=== PATIENT | female | born 1985 | race Caucasian/White ===

== ENCOUNTER 2022-09-29 06:39 | Inpatient (IN) ==
[2022-09-29] MEDS ORDERED: fentaNYL citrate 100 MCG/2 ML VIAL ONE (07:13)
--- NOTE | 2022-09-29 07:44 | Anesthesiology Consultation ---
Date of Service September 29, 2022 Assessment & Plan (1) Encounter for pre-operative examination: Chart Review Chart Review: Patient NOT seen in Pre Admission Testing and Patient seen in Pre Admission Testing urgent need d/t cervical dilation and twin gestation, to OR for MAC and standby for potential conversion to surgical delivery Consults Requested none History Allergies Allergy/AdvReac Type Severity Reaction Status Date / Time animal dander Allergy sneeze, Verified 05/22/22 06:58 itchy eyes hazelnut Allergy Hives Verified 05/22/22 06:58 ragweed pollen Allergy sneeze, Verified 05/22/22 06:58 itchy eyes Medications Home Medications Medication Instructions Recorded Confirmed Last Taken cetirizine 10 mg tablet (Zyrtec) 10 mg PO DAILY 05/21/22 05/21/22 Unknown ondansetron 4 mg disintegrating 0 mg PO Q6H PRN Nausea 05/21/22 05/21/22 Unknown tablet vit no.95-ferrous 1 tab PO DAILY 05/21/22 05/21/22 Unknown fumarate 28 mg-folic acid 800 mcg tablet () sennosides 8.6 mg-docusate sodium 1 - 2 tab-cap PO BID PRN 05/25/22 Unknown 50 mg tablet (Senokot-S) constipation #60 tabs Past Medical History Medical History Abdominal pain, right lower quadrant Social History Smoking Status: Never smoker Physical Exam Vital Signs Last Vital Signs Pulse 75 09/29/22 07:39 BP 94/55 L 09/29/22 06:53 Pulse Ox 100 09/29/22 07:39
[2022-09-29] MEDS ORDERED: PROPOFOL IV EMULSION 10 MG/ML 20 ML VIAL IV ONE (08:11)
[2022-09-29] MEDS ORDERED: METHYLERGONOVINE MALEATE 0.2 MG/ML AMP ONE (08:11)
--- NOTE | 2022-09-29 08:25 | Anesthesiology Progress Note ---
Date of Service September 29, 2022 Anesthesia Post Procedure Vital Signs Vital Signs: Pulse BP Pulse Ox 09/29/22 08:21 95 09/29/22 08:21 78 09/29/22 08:22 78 122/56 L 09/29/22 08:21 87 93 09/29/22 07:49 92 H 97 09/29/22 07:45 79 93 09/29/22 07:44 96 H 100 09/29/22 07:39 75 100 09/29/22 07:34 81 96 09/29/22 07:33 90 93 09/29/22 07:29 102 H 100 09/29/22 07:26 90 93 09/29/22 07:24 88 98 09/29/22 07:21 77 94 09/29/22 07:19 80 95 09/29/22 07:15 85 93 09/29/22 06:53 87 94/55 L Transfer of Care Handoff Completed per policy Notes Mental Status: alert / awake / arousable and participated in evaluation Patient Amnestic to Procedure: No Nausea / Vomiting: adequately controlled Pain: adequately controlled Airway Patency, RR, SpO2: stable & adequate BP & HR: stable & adequate Hydration State: stable & adequate Anesthetic Complications: no major complications apparent and Pt Satisfied with anesthetic care
[2022-09-29] MEDS ORDERED: OXYTOCIN 30 UNITS/500 ML BAG IV PRN (08:27)
[2022-09-29] MEDS ORDERED: METHYLERGONOVINE MALEATE 0.2 MG/ML AMP IM PRN (08:27)
[2022-09-29] MEDS ORDERED: LIDOCAINE 1% LOCAL 20 ML VIAL INFIL PRN (08:27)
[2022-09-29] MEDS ORDERED: LACTATED RINGER'S 1,000 ML IV PRN (08:27)
[2022-09-29] MEDS ORDERED: miSOPROStoL 200 MCG TAB PR ONE (08:38)
[2022-09-29] MEDS ORDERED: ONDANSETRON 4 MG OD TAB PO PRN (08:38)
--- NOTE | 2022-09-29 08:40 | History & Physical Report ---
Date of Service September 29, 2022 Assessment & Plan (1) premature rupture of membranes: Plan: Delivery vaginally in OR Present on Admission?: Yes (2) Twin gestation in third trimester: (3) 32 week prematurity: Admission and Anticipated Discharge Date Admission Date: September 29, 2022 History of Present Illness Chief Complaint: ruptured membranes with twins 32 weeks Primary Care Provider: NO PCP 37 F P2012 at 32 weeks with SROM clear fluid with twin gestation at 32 weeks Allergies Allergy/AdvReac Type Severity Reaction Status Date / Time animal dander Allergy sneeze, Verified 09/29/22 08:34 itchy eyes hazelnut Allergy Hives Verified 09/29/22 08:34 ragweed pollen Allergy sneeze, Verified 09/29/22 08:34 itchy eyes Home Medications Medication Instructions Recorded Confirmed Type cetirizine 10 mg tablet (Zyrtec) 10 mg PO DAILY 05/21/22 05/21/22 History ondansetron 4 mg disintegrating 0 mg PO Q6H PRN Nausea 05/21/22 05/21/22 History tablet vit no.95-ferrous 1 tab PO DAILY 05/21/22 05/21/22 History fumarate 28 mg-folic acid 800 mcg tablet () sennosides 8.6 mg-docusate sodium 1 - 2 tab-cap PO BID PRN 05/25/22 Rx 50 mg tablet (Senokot-S) constipation #60 tabs Patient History Medical History Abdominal pain, right lower quadrant Social History Smoking Status: Never smoker Feels Safe at Home: Yes OB History x2 [employer] History neg Review of Systems All systems reviewed & are unremarkable except as noted in HPI & below Physical Exam Constitutional: WD/WN, vitals as above Eyes: PERRL, conjunctivae normal, anicteric sclerae Respiratory: normal respiratory effort, lungs clear to auscultation Gastrointestinal (Abdomen): Inspection/Auscultation: abdomen normal to inspection Musculoskeletal: Extremities: extremities normal to inspection Skin: no rashes, warm and dry Neurologic: patellar DTR's 2+ bilat, sensation intact Psychiatric: A+Ox3, euthymic affect Genitourinary: Manual OB Exam: + cervical dilation 10 cm, + cervical effacement 100%, + station + 2 and + amniotic fluid clear OB Exam Monitor Tracing: + external FHT monitor used, + external uterine monitor used, + category I and + normal FHT variability Twin A vertex Cat 1 Twin B breech Cat 1 GBS not known Results & Data ([place]) Vital Signs (Past 12 Hours) Vital Signs Pulse BP Pulse Ox 09/29/22 08:31 86 97 09/29/22 08:26 71 97 09/29/22 08:21 95 09/29/22 08:21 78 09/29/22 08:22 78 122/56 L 09/29/22 08:21 87 93 09/29/22 07:49 92 H 97 09/29/22 07:45 79 93 09/29/22 07:44 96 H 100 09/29/22 07:39 75 100 09/29/22 07:34 81 96 09/29/22 07:33 90 93 09/29/22 07:29 102 H 100 09/29/22 07:26 90 93 09/29/22 07:24 88 98 09/29/22 07:21 77 94 09/29/22 07:19 80 95 09/29/22 07:15 85 93 09/29/22 06:53 87 94/55 L Code Status & VTE Plan VTE Prophylaxis Plan VTE Prophylaxis will be ordered: No Monitoring External Monitor Ca t 1 A/B
[2022-09-29] MEDS ORDERED: PRENATAL VITAMIN 1 TAB PO SCH (09:00)
[2022-09-29] MEDS ORDERED: SODIUM CHLORIDE 0.9% 250 ML IV PRN (10:18)
[2022-09-29] MEDS: IBUPROFEN 600 MG TAB PO PRN ×3 (11:56→23:10)
[2022-09-29] MEDS: CETIRIZINE HCL 10 MG TABLET PO SCH (11:56)
--- NOTE | 2022-09-29 12:06 | Delivery Summary ---
DELIVERY NOTE The patient is a 37-year-old female, para 2-0-0-2, who presents at 32 weeks and 5 days with premature rupture of membranes of twin gestation. The patient was identified. She had twins that were vertex breech by ultrasound done by Dr. Ramsay. She was given informed consent. She was fully dilated upon presentation and delivery options were given to her and the patient consented to delivery in the OR to attempt a vaginal delivery since the first twin was presenting as a vertex and the patient had a tremendous urge to push. The fluid was clear. The patient pushed several times, had an uneventful delivery of twin A, which was vertex female. There was a delayed cord clamping and the baby was suctioned and the cord was clamped and cut. Chasity clamps were placed and the baby had Apgars of 8 and 9. weight was pending. Following this, the patient had several contractions, and she pushed for several times. Amniotomy was performed with Amniohook clear fluid noted and the patient was found to be a double footling breech. The feet were grabbed and the baby was delivered without incident. Live female. Delayed cord clamping for 30 seconds. The Apgars were 6 and 8, weight was pending. The cord was clamped with a Ethel clamp. Following this, the IV was started with Pitocin. Cord blood was obtained from baby A and baby B. Both cords were sheared off after attempts to deliver the placenta. The patient was then sedated and manual removal of placenta was accomplished without difficulty intact and the placenta was submitted to pathology. At the end of this procedure, the patient received 1000 mcg of Cytotec rectally along with IV Pitocin and 0.2 IM Methergine. No active bleeding was noted. The final sponge and instrument count were found to be correct. The patient was then stable. Babies to the NICU, level 2 nursery, on CPAP for observation and mom was taken to the recovery room in stable condition. Estimated blood loss was 100 mL. Job ID: [id number] [facility]ENTERBrian
[2022-09-30] MEDS ORDERED: SERTRALINE HCL 100 MG TABLET PO SCH (09:00)
[2022-09-30] MEDS: CETIRIZINE HCL 10 MG TABLET PO SCH (09:10)
--- NOTE | 2022-09-30 10:00 | Obstetrical Progress Note ---
Date of Service September 30, 2022 Assessment & Plan (1) 32 week prematurity: S/P Twin delivery @ 32 weeks [place] [facility] [place] well pt wishes to be discharged [place] Results & Data ([facility]) Vital Signs (Past 12 Hours) Vital Signs Temp Pulse Pulse Resp BP BP Pulse Ox 09/30/22 09:20 37.0 C 90 18 109/64 97 09/29/22 23:10 36.8 C 85 18 99/60 L 96 09/30/22 04:42 36.6 C 59 L 16 103/61 98 O2 Del Method 09/30/22 09:20 Room Air 09/29/22 23:10 09/30/22 04:42
[2022-09-30 10:09] LABS: Basophils # (auto) 0.04 K/uL (0-0.2); Basophils % (auto) 0.3 %; Eosinophils # (auto) 0.08 K/uL (0-0.50); Eosinophils % (auto) 0.6 %; Hematocrit (blood only) 31.2 % (37.0-47.0); Hemoglobin 10.3 g/dl (12.0-16.0); Immature Granulocytes # (auto) 0.16 K/uL (0.01-0.20); Immature Granulocytes % (auto) 1.2 %; Lymphocytes # (auto) 3.17 K/uL (1.2-3.4); Lymphocytes % (auto) 24.6 %; Mean Corpuscular Hemoglobin 30.9 pg (25.0-34.0); Mean Corpuscular Volume 93.7 fL (80.0-100.0); Mean Platelet Volume 8.7 fL (9.4-12.4); Monocytes # (auto) 0.73 K/uL (0.11-0.59); Monocytes % (auto) 5.7 %; Neutrophils # (auto) 8.73 K/uL (1.40-6.50); Neutrophils % (auto) 67.6 %; Platelet Count 280 K/uL (130-400); RDW Coefficient of Variation 13.7 % (11.5-14.5); RDW Standard Deviation 46.1 fL (36.4-46.3); Red Blood Count 3.33 M/uL (4.20-5.40); White Blood Count 12.91 K/ul (4.8-10.8)
[2022-09-30] MEDS: IBUPROFEN 600 MG TAB PO PRN (11:50)
== END 2022-09-30 12:25 | disposition home or self-care (01) | DRG 805 ==
LOC: OPB 06:39 → 4S1 06:42 → 4E1 10:48

== ENCOUNTER 2022-10-04 17:41 | Inpatient (IN) ==
[2022-10-04] MEDS ORDERED: SODIUM CHLORIDE 0.9% 1000ML 1,000 ML IV SCH (18:30)
--- NOTE | 2022-10-04 18:50 | Emergency Department Note ---
History of Present Illness General Chief complaint: Fever Stated complaint: FEVER, BLOOD CLOT Time Seen by Provider: 10/04/22 17:57 History of Present Illness Provider complaint: Fever Onset (ago): day(s) 2 37-year-old female status post vaginal delivery of twins on September 29 by Brittaney DISPENSING OPTICIAN at this facility presents emergency department for fever. Patient reports she has been having fever for the last 2 days. Tmax of 101.3. She also reports she has been passing clots vaginally. She reports chills. She reports abdominal pain but she reports that after passing some clots her pain improved. No cough. No headache. No chest pain or difficulty breathing. No nausea or vomiting. No breast tenderness or erythema. Home Medications Medication Instructions Recorded Confirmed Type cetirizine 10 mg tablet (Zyrtec) 10 mg PO DAILY 05/21/22 10/04/22 History vit no.95-ferrous 1 tab PO DAILY 05/21/22 10/04/22 History fumarate 28 mg-folic acid 800 mcg tablet () sertraline 100 mg tablet (Zoloft) 100 mg PO DAILY 09/29/22 10/04/22 History ferrous sulfate 325 mg (65 mg 325 mg PO Q OTHER DAY 10/04/22 10/04/22 History iron) tablet Allergies Allergy/AdvReac Type Severity Reaction Status Date / Time animal dander Allergy Intermediate sneeze, Verified 10/04/22 18:29 itchy eyes hazelnut Allergy Intermediate Hives Verified 10/04/22 18:29 ragweed pollen Allergy Intermediate sneeze, Verified 10/04/22 18:29 itchy eyes Past Med/Surg History Medical History Abdominal pain, right lower quadrant Anxiety and depression Surgical History Hx of tonsillectomy [place] teeth extracted Social History Smoking Status: Never smoker Second Hand Exposure: No; Hx Alcohol Use: No Hx Substance Use: No 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 Beliefs That Will Affect Care: None marital status: Current Living Situation: Spouse Current Living Situation Comment: Robinson- , 5 Josué, 4 Hector (daughters) Feels Safe at Home: Yes Assistive Devices: Glasses Physical Exam Vital Signs Vital Signs - 24 hr 10/04/22 17:50 10/04/22 18:11 10/04/22 19:04 Temperature 37.6 C H Temperature Source Oral Pulse Rate 119 H 103 H Pulse Rate [Left Finger] Pulse Rhythm [Left Finger] Pulse Strength [Left Finger] Respiratory Rate 20 Respiratory Effort / Characteristics Respiratory Depth Normal Blood Pressure 109/64 Blood Pressure [Left Arm] Blood Pressure Mean 79 Blood Pressure Mean [Left Arm] Pulse Oximetry 97 100 Oxygen Delivery Method Room Air Room Air Sepsis Recent Fever Within 48 Hours Yes Sepsis New/Unexplained Change in Mental Status No Sepsis Action Taken by Nursing No Action Required 10/04/22 19:04 10/04/22 20:03 10/04/22 20:48 Temperature Temperature Source Pulse Rate Pulse Rate [Left Finger] 100 H 101 H 88 Pulse Rhythm [Left Finger] Regular Regular Regular Pulse Strength [Left Finger] Normal Normal Normal Respiratory Rate 20 16 16 Respiratory Effort / Characteristics Non-Labored Spontaneous Non-Labored Spontaneous Non-Labored Spontaneous Respiratory Depth Normal Normal Normal Blood Pressure Blood Pressure [Left Arm] 126/68 129/70 129/70 Blood Pressure Mean Blood Pressure Mean [Left Arm] 87 89 89 Pulse Oximetry 99 99 98 Oxygen Delivery Method Room Air Room Air Room Air Sepsis Recent Fever Within 48 Hours Sepsis New/Unexplained Change in Mental Status Sepsis Action Taken by Nursing 10/04/22 21:16 10/04/22 22:23 10/04/22 22:00 Temperature Temperature Source Pulse Rate 78 Pulse Rate [Left Finger] 87 77 Pulse Rhythm [Left Finger] Regular Regular Pulse Strength [Left Finger] Normal Normal Respiratory Rate 16 20 Respiratory Effort / Characteristics Non-Labored Spontaneous Non-Labored Spontaneous Respiratory Depth Normal Normal Blood Pressure Blood Pressure [Left Arm] 99/56 L 99/80 L Blood Pressure Mean Blood Pressure Mean [Left Arm] 70 86 Pulse Oximetry 98 97 Oxygen Delivery Method Room Air Room Air Sepsis Recent Fever Within 48 Hours Sepsis New/Unexplained Change in Mental Status Sepsis Action Taken by Nursing 10/04/22 22:34 Temperature Temperature Source Pulse Rate Pulse Rate [Left Finger] 73 Pulse Rhythm [Left Finger] Regular Pulse Strength [Left Finger] Respiratory Rate Respiratory Effort / Characteristics Respiratory Depth Blood Pressure Blood Pressure [Left Arm] Blood Pressure Mean Blood Pressure Mean [Left Arm] Pulse Oximetry Oxygen Delivery Method Sepsis Recent Fever Within 48 Hours Sepsis New/Unexplained Change in Mental Status Sepsis Action Taken by Nursing Physical Exam GENERAL: She is oriented to person, place, and time. She appears well-developed and well-nourished. She does not appear distressed. HENT: Exam performed. -Head: Normocephalic and atraumatic. -Right Ear: External ear normal. -Left Ear: External ear normal. -Mouth/Throat: The oropharynx is clear and moist. No trismus in the jaw. No dental abscesses or uvula swelling. No oropharyngeal exudate or tonsillar abscesses. EYES: Conjunctivae and EOM are normal. Pupils are equal, round, and reactive to light. Right eye exhibits no discharge. Left eye exhibits no discharge. No scleral icterus. NECK: Normal range of motion. Neck supple. No JVD present. No spinous process tenderness present.No rigidity. No tracheal deviation and normal range of motion present. CV: Tachycardic rate, regular rhythm, normal heart sounds and intact distal pulses. There is no peripheral edema. Palpable radial pulses bue. PULM/CHEST: Effort normal and breath sounds normal. No respiratory distress. No stridor. She has no wheezes. She has no rales. -Chest Wall: She exhibits no tenderness. Breast: Conducted with female nursing rf test technician Edilberto at bedside. No erythema of the breast tissue. ABD: The abdomen is soft. She has no distension. There is no tenderness. There is no rebound, no guarding, MUSC/SKEL: Normal range of motion. There is no peripheral edema, tenderness or deformity. LYMPH: No cervical adenopathy. NEURO: She is alert and oriented to person, place, and time. She has normal strength. No cranial nerve deficit or sensory deficit. Coordination and gait normal. GCS eye subscore is 4. GCS verbal subscore is 5. GCS motor subscore is 6. Cerebellar tests wnl. SKIN: Skin is warm and dry. She is not diaphoretic. PSYCH: She has a normal mood and affect. Behavior is normal. Judgment and thought content normal. Course Course 1756: The patient was evaluated in room B2. A complete history and physical exam was performed Cardiac monitoring: An order was placed for continuous cardiac monitoring. The monitor shows a rate of 105 with sinus tachycardia rhythm interpreted by me 2010: Vital signs improved with IV fluids. Labs show leukocytosis of 20.59. Lactic acid within normal limits. Urinalysis is contaminated sample but negative for bacteria. Ultrasound shows retained products of conception. Patient be treated for endometritis given her fever abdominal pain and leukocytosis. Gentamicin and clindamycin ordered for the patient. Discussed case with patient's DISPENSING OPTICIAN Dr. Ramsay who states he will be down to evaluate the patient. Administered Medications Lactated Ringer's (Lr) 1,000 mls @ 125 mls/hr IV .Q8H JOSE Stop: 11/03/22 22:59 Last Admin: 10/05/22 00:00 Dose: 125 mls/hr Documented By: TW Discontinued Medications Sodium Chloride (Nss 1000ml) 1,000 mls @ 999 mls/hr IV .Q1H1M JOSE Stop: 10/04/22 19:30 Last Infusion: 10/04/22 19:51 Dose: 0 mls/hr Documented By: Admin: 10/04/22 18:33 Dose: 999 mls/hr Documented By: LARISA Clindamycin Phosphate (Cleocin/D5w) 900 mg in 50 mls @ 100 mls/hr IV NOW ONE Stop: 10/04/22 20:31 Last Infusion: 10/04/22 21:13 Dose: 0 mls/hr Documented By: Admin: 10/04/22 20:42 Dose: 100 mls/hr Documented By: RACHELLE Acetaminophen (Ofirmev) 1,000 mg in 100 mls @ 400 mls/hr IV NOW STA Stop: 10/04/22 20:27 Last Infusion: 10/04/22 20:38 Dose: 0 mls/hr Documented By: Admin: 10/04/22 20:22 Dose: 400 mls/hr Documented By: RACHELLE Gentamicin Sulfate 423 mg/ (Dextrose) 110.575 mls @ 100 mls/hr IV ONE STA; Protocol Stop: 10/05/22 00:37 Last Admin: 10/05/22 00:00 Dose: 100 mls/hr Documented By: RACHELLE Medical Decision Making Medical Records Attestation: I reviewed the patient's medical records. External medical records were reviewed. Patient delivered on September 29, 2022. According to the vaginal delivery summary the patient was sedated and there is manual removal of the placenta without difficulty and the placenta was submitted to pathology intact. Patient delivered at 32 weeks of gestation and both twins were transferred to [facility]. Laboratory Data Attestation: I reviewed the patient's lab results. 10/04/22 18:34 10/04/22 18:34 Lab Results 10/04/22 10/04/22 10/04/22 Range/Units 18:34 18:34 18:34 WBC 20.59 H (4.8-10.8) K/ul RBC 3.43 L (4.20-5.40) M/uL Hgb 10.8 L (12.0-16.0) g/dl Hct 31.5 L (37.0-47.0) % MCV 91.8 (80.0-100.0) fL MCH 31.5 (25.0-34.0) pg MCHC 34.3 (32.0-36.0) g/dL RDW Std Deviation 46.5 H (36.4-46.3) fL RDW Coeff of Stanislav 13.9 (11.5-14.5) % Plt Count 409 H (130-400) K/uL MPV 8.2 L (9.4-12.4) fL Immature Gran % (Auto) 1.2 % Neut % (Auto) 77.7 % Lymph % (Auto) 13.3 % [place] % (Auto) 5.6 % Eos % (Auto) 1.8 % Baso % (Auto) 0.4 % Neut # (Auto) 16.01 H (1.40-6.50) K/uL Lymph # (Auto) 2.73 (1.2-3.4) K/uL [place] # (Auto) 1.15 H (0.11-0.59) K/uL Eos # (Auto) 0.37 (0-0.50) K/uL Baso # (Auto) 0.08 (0-0.2) K/uL Immature Gran # (Auto) 0.25 H (0.01-0.20) K/uL PT 10.3 (9.0-12.0) Seconds INR 1.0 (0.9-1.1) APTT 27.9 (21.0-31.0) Seconds PTT Ratio 1.0 Sodium 134 L (136-145) mmol/L Potassium 3.5 (3.5-5.1) mmol/L Chloride 104 (98-107) mmol/L Carbon Dioxide 23 (21-32) mmol/L Anion Gap 7 (3-11) BUN 5 L (6-23) mg/dl Creatinine 0.54 L (0.6-1.2) mg/dl Est Cr Clr Drug Dosing 143.3 ml/min Est GFR ( Amer) 138.7 ml/min Est GFR (Non-Af Amer) 119.7 ml/min BUN/Creatinine Ratio 9.3 L (10-20) Glucose 79 (70-99(Fasting)) mg/dl Lactate (0.4-2.0) mmol/L Calcium 8.0 L (8.5-10.1) mg/dl Magnesium 1.8 (1.7-2.4) mg/dl Total Bilirubin 0.3 (0.2-1.0) mg/dl Direct Bilirubin 0.0 (0-0.2) mg/dl AST 9 L (13-39) U/L ALT 7 (7-52) U/L Alkaline Phosphatase 159 H (34-104) U/L Troponin I High Sens 5.6 (0-14) pg/ml Total Protein 6.6 (6.0-8.3) gm/dl Albumin 3.2 L (3.4-5.0) gm/dl Procalcitonin (0-0.5) ng/ml Urine Color Urine Appearance (Clear) Urine pH (4.5-7.5) Ur Specific [place] (1.000-1.030) Urine Protein (Negative) Urine Glucose (UA) (Negative) Urine Ketones (Negative) Urine Blood (Negative) Urine Nitrite (Negative) Urine Bilirubin (Negative) Urine Urobilinogen (Negative) Ur Leukocyte Esterase (Negative) Urine WBC (Auto) (0-5) /hpf Urine RBC (Auto) (0-4) /hpf U Hyaline Cast (Auto) (0-5) /lpf U Epithel Cells (Auto) (0-5) /lpf Urine Bacteria (Auto) (Negative) SARS-CoV-2 (PCR) (Negative) Influenza Type A (PCR) (Neg) Influenza Type B (PCR) (Neg) RSV (RT-PCR) (Neg) 10/04/22 10/04/22 10/04/22 Range/Units 18:34 18:34 18:43 WBC (4.8-10.8) K/ul RBC (4.20-5.40) M/uL Hgb (12.0-16.0) g/dl Hct (37.0-47.0) % MCV (80.0-100.0) fL MCH (25.0-34.0) pg MCHC (32.0-36.0) g/dL RDW Std Deviation (36.4-46.3) fL RDW Coeff of Stnaislav (11.5-14.5) % Plt Count (130-400) K/uL MPV (9.4-12.4) fL Immature Gran % (Auto) % Neut % (Auto) % Lymph % (Auto) % [place] % (Auto) % Eos % (Auto) % Baso % (Auto) % Neut # (Auto) (1.40-6.50) K/uL Lymph # (Auto) (1.2-3.4) K/uL [place] # (Auto) (0.11-0.59) K/uL Eos # (Auto) (0-0.50) K/uL Baso # (Auto) (0-0.2) K/uL Immature Gran # (Auto) (0.01-0.20) K/uL PT (9.0-12.0) Seconds INR (0.9-1.1) APTT (21.0-31.0) Seconds PTT Ratio Sodium (136-145) mmol/L Potassium (3.5-5.1) mmol/L Chloride (98-107) mmol/L Carbon Dioxide (21-32) mmol/L Anion Gap (3-11) BUN (6-23) mg/dl Creatinine (0.6-1.2) mg/dl Est Cr Clr Drug Dosing ml/min Est GFR ( Amer) ml/min Est GFR (Non-Af Amer) ml/min BUN/Creatinine Ratio (10-20) Glucose (70-99(Fasting)) mg/dl Lactate 0.7 (0.4-2.0) mmol/L Calcium (8.5-10.1) mg/dl Magnesium (1.7-2.4) mg/dl Total Bilirubin (0.2-1.0) mg/dl Direct Bilirubin (0-0.2) mg/dl AST (13-39) U/L ALT (7-52) U/L Alkaline Phosphatase (34-104) U/L Troponin I High Sens (0-14) pg/ml Total Protein (6.0-8.3) gm/dl Albumin (3.4-5.0) gm/dl Procalcitonin 0.05 (0-0.5) ng/ml Urine Color Urine Appearance (Clear) Urine pH (4.5-7.5) Ur Specific [place] (1.000-1.030) Urine Protein (Negative) Urine Glucose (UA) (Negative) Urine Ketones (Negative) Urine Blood (Negative) Urine Nitrite (Negative) Urine Bilirubin (Negative) Urine Urobilinogen (Negative) Ur Leukocyte Esterase (Negative) Urine WBC (Auto) (0-5) /hpf Urine RBC (Auto) (0-4) /hpf U Hyaline Cast (Auto) (0-5) /lpf U Epithel Cells (Auto) (0-5) /lpf Urine Bacteria (Auto) (Negative) SARS-CoV-2 (PCR) NEGATIVE (Negative) Influenza Type A (PCR) Negative (Neg) Influenza Type B (PCR) Negative (Neg) RSV (RT-PCR) Negative (Neg) 10/04/22 Range/Units 20:00 WBC (4.8-10.8) K/ul RBC (4.20-5.40) M/uL Hgb (12.0-16.0) g/dl Hct (37.0-47.0) % MCV (80.0-100.0) fL MCH (25.0-34.0) pg MCHC (32.0-36.0) g/dL RDW Std Deviation (36.4-46.3) fL RDW Coeff of Stanislav (11.5-14.5) % Plt Count (130-400) K/uL MPV (9.4-12.4) fL Immature Gran % (Auto) % Neut % (Auto) % Lymph % (Auto) % [place] % (Auto) % Eos % (Auto) % Baso % (Auto) % Neut # (Auto) (1.40-6.50) K/uL Lymph # (Auto) (1.2-3.4) K/uL [place] # (Auto) (0.11-0.59) K/uL Eos # (Auto) (0-0.50) K/uL Baso # (Auto) (0-0.2) K/uL Immature Gran # (Auto) (0.01-0.20) K/uL PT (9.0-12.0) Seconds INR (0.9-1.1) APTT (21.0-31.0) Seconds PTT Ratio Sodium (136-145) mmol/L Potassium (3.5-5.1) mmol/L Chloride (98-107) mmol/L Carbon Dioxide (21-32) mmol/L Anion Gap (3-11) BUN (6-23) mg/dl Creatinine (0.6-1.2) mg/dl Est Cr Clr Drug Dosing ml/min Est GFR ( Amer) ml/min Est GFR (Non-Af Amer) ml/min BUN/Creatinine Ratio (10-20) Glucose (70-99(Fasting)) mg/dl Lactate (0.4-2.0) mmol/L Calcium (8.5-10.1) mg/dl Magnesium (1.7-2.4) mg/dl Total Bilirubin (0.2-1.0) mg/dl Direct Bilirubin (0-0.2) mg/dl AST (13-39) U/L ALT (7-52) U/L Alkaline Phosphatase (34-104) U/L Troponin I High Sens (0-14) pg/ml Total Protein (6.0-8.3) gm/dl Albumin (3.4-5.0) gm/dl Procalcitonin (0-0.5) ng/ml Urine Color [place] Urine Appearance Cloudy A (Clear) Urine pH 7.0 (4.5-7.5) Ur Specific [place] 1.006 (1.000-1.030) Urine Protein 1+ H (Negative) Urine Glucose (UA) Negative (Negative) Urine Ketones Trace H (Negative) Urine Blood 3+ H (Negative) Urine Nitrite Negative (Negative) Urine Bilirubin Negative (Negative) Urine Urobilinogen Negative (Negative) Ur Leukocyte Esterase 3+ H (Negative) Urine WBC (Auto) >30 H (0-5) /hpf Urine RBC (Auto) 10-30 H (0-4) /hpf U Hyaline Cast (Auto) 1-5 (0-5) /lpf U Epithel Cells (Auto) 10-20 H (0-5) /lpf Urine Bacteria (Auto) Negative (Negative) SARS-CoV-2 (PCR) (Negative) Influenza Type A (PCR) (Neg) Influenza Type B (PCR) (Neg) RSV (RT-PCR) (Neg) Imaging Data Attestation: I personally reviewed and interpreted this imaging study as follows: My Impression: Chest x-ray negative. Airway clear. No pneumothorax. No consolidation. No cardiomegaly or cephalization.. No free air under the diaphragm. No fractures of the skeletal structures. Radiologist's Impression: Chest X-Ray 10/04/22 18:17 XR chest 1V portable HISTORY: 37 years-old Female Sepsis acute sepsis COMPARISON: None TECHNIQUE: AP view of the chest FINDINGS: Cardiomediastinal and hilar silhouettes are within normal limits. No pneumothorax, pleural effusion, airspace consolidation or pulmonary edema. Bones of the chest appear grossly intact. IMPRESSION: No acute process. ACT 112: Negative or not required by law. The above report was generated using voice recognition software. It may contain grammatical, syntax or spelling errors. Electronically signed by: Cristhian Rae M.D. 10/04/2022 6:54 PM Pelvis Ultrasound 10/04/22 18:17 US pelvic complete HISTORY: 37 years-old Female ro retained products conception acute pelvic pain with vaginal bleeding and fever status post recent vaginal delivery COMPARISON: None TECHNIQUE: Multiple real-time sonographic images of the deep pelvic structures were obtained transabdominally assessing grayscale appearance, color and spectral flow FINDINGS: Heterogeneous appearance of the uterus, 17.8 x 8.3 x 11.1 cm. Endometrium is thickened and heterogeneous, 4.6 cm with areas of increased flow. Right ovary measures 3.1 x 2.7 x 2.6 cm with arterial inflow and venous outflow. Left ovary is obscured by bowel gas. No significant free pelvic fluid. IMPRESSION: appearance of the uterus with suggested blood products and retained products of conception within the endometrial cavity. ACT 112: Negative or not required by law. The above report was generated using voice recognition software. It may contain grammatical, syntax or spelling errors. Electronically signed by: Cristhian Rae M.D. 10/04/2022 7:42 PM ECG Data Attestation: I personally reviewed and interpreted this ECG as follows: Indication: + other (Fever) Rate (beats per minute): 97 Rhythm: + normal sinus ECG Intervals/blocks: + Normal QRS, + Normal [place] and + Normal QT-c ECG ST segments: + Normal ST segments [facility] Narrative 1757: The patient was evaluated in room B2. A complete history and physical exam was performed Cardiac monitoring: An order was placed for continuous cardiac monitoring. The monitor shows a rate of 105 with sinus tachycardia rhythm interpreted by me 2010: Vital signs improved with IV fluids. Labs show leukocytosis of 20.59. Lactic acid within normal limits. Urinalysis is contaminated sample but negative for bacteria. Ultrasound shows retained products of conception. Patient be treated for endometritis given her fever abdominal pain and leukocytosis. Gentamicin and clindamycin ordered for the patient. Discussed case with patient's DISPENSING OPTICIAN Dr. Ramsay who states he will be down to evaluate the patient. Impression & Plan Endometritis, Retained products of conception Discharge Plan Visit Data Chief Complaint: Fever Stated Complaint: FEVER, BLOOD CLOT ED Provider: John Casas Discharge Problem: Endometritis, Retained products of conception Patient Disposition: Admitted As Inpatient Discharge Instructions Interventions: ED Discharge Assessment Last Done: 10/05/22 00:19
[2022-10-04 18:51] LABS: Basophils # (auto) 0.08 K/uL (0-0.2); Basophils % (auto) 0.4 %; Eosinophils # (auto) 0.37 K/uL (0-0.50); Eosinophils % (auto) 1.8 %; Hematocrit (blood only) 31.5 % (37.0-47.0); Hemoglobin 10.8 g/dl (12.0-16.0); Immature Granulocytes # (auto) 0.25 K/uL (0.01-0.20); Immature Granulocytes % (auto) 1.2 %; Lymphocytes # (auto) 2.73 K/uL (1.2-3.4); Lymphocytes % (auto) 13.3 %; Mean Corpuscular Hemoglobin 31.5 pg (25.0-34.0); Mean Corpuscular Hgb Conc 34.3 g/dL (32.0-36.0); Mean Corpuscular Volume 91.8 fL (80.0-100.0); Mean Platelet Volume 8.2 fL (9.4-12.4); Monocytes # (auto) 1.15 K/uL (0.11-0.59); Monocytes % (auto) 5.6 %; Neutrophils # (auto) 16.01 K/uL (1.40-6.50); Neutrophils % (auto) 77.7 %; Platelet Count 409 K/uL (130-400); RDW Coefficient of Variation 13.9 % (11.5-14.5); RDW Standard Deviation 46.5 fL (36.4-46.3); Red Blood Count 3.43 M/uL (4.20-5.40); White Blood Count 20.59 K/ul (4.8-10.8)
--- NOTE | 2022-10-04 18:55 | XRay Report ---
XR chest 1V portable HISTORY: 37 years-old Female Sepsis acute sepsis COMPARISON: None TECHNIQUE: AP view of the chest FINDINGS: Cardiomediastinal and hilar silhouettes are within normal limits. No pneumothorax, pleural effusion, airspace consolidation or pulmonary edema. Bones of the chest appear grossly intact. IMPRESSION: No acute process. ACT 112: Negative or not required by law. The above report was generated using voice recognition software. It may contain grammatical, syntax o r spelling errors. Electronically signed by: Cristhian Rae M.D. 10/04/2022 6:54 PM
[2022-10-04 19:11] LABS: Albumin Level 3.2 gm/dl (3.4-5.0); BUN Creatinine Ratio 9.3 (10-20); Bilirubin,Total 0.3 mg/dl (0.2-1.0); Creatinine Clr Calc Pharmacy 143.3 ml/min; Est GFR (African American) 138.7 ml/min; Est GFR (Non-African American) 119.7 ml/min; Magnesium 1.8 mg/dl (1.7-2.4); Potassium 3.5 mmol/L (3.5-5.1); Total Protein 6.6 gm/dl (6.0-8.3)
[2022-10-04 19:16] LABS: Troponin I High Sensitivity 5.6 pg/ml (0-14)
[2022-10-04 19:23] LABS: Partial Thromboplastin Time 27.9 Seconds (21.0-31.0); Prothrombin Time 10.3 Seconds (9.0-12.0)
--- NOTE | 2022-10-04 19:44 | Ultrasound Report ---
US pelvic complete HISTORY: 37 years-old Female ro retained products conception acute pelvic pain with vaginal bleeding and fever status post recent vaginal delivery COMPARISON: None TECHNIQUE: Multiple real-time sonographic images of the deep pelvic structures were obtained transabd ominally assessing grayscale appearance, color and spectral flow FINDINGS: Heterogeneous appearance of the uterus, 17.8 x 8.3 x 11.1 cm. Endometrium is thickened and heterogeneous, 4.6 cm with areas of increased flow. Right ovary measures 3.1 x 2.7 x 2.6 cm with arterial inflow and venous outflow. Left ovary is obscur ed by bowel gas. No significant free pelvic fluid. IMPRESSION: appearance of the uterus with suggested blood products and retained products o f conception within the endometrial cavity. ACT 112: Negative or not required by law. The above report was generated using voice recognition software. It may contain grammatical, syntax o r spelling errors. Electronically signed by: Cristhian Rae M.D. 10/04/2022 7:42 PM
[2022-10-04 19:46] LABS: Influenza A virus by PCR Negative (Neg); Influenza B virus by PCR Negative (Neg); RSV by PCR Negative (Neg); SARS CoV2 RNA(COVID-19) Ceph NEGATIVE (Negative)
[2022-10-04] MEDS ORDERED: CLINDAMYCIN/D5W 900 MG/50 ML BAG IV ONE (20:02)
[2022-10-04] MEDS ORDERED: GENTAMICIN CONSULT ACTIVE PRN ×2 (20:02→23:32)
[2022-10-04] MEDS ORDERED: ACETAMINOPHEN 1,000 MG/100 ML VIAL IV STA (20:13)
[2022-10-04] MEDS ORDERED: GENTAMICIN SULFATE 320 MG in DEXTROSE 5% 100 ML IV SCH (20:15)
[2022-10-04 20:25] LABS: Appearance Urine Cloudy (Clear); Bacteria Urine Automated Negative (Negative); Bilirubin Urine Negative (Negative); Blood Urine 3+ (Negative); Color Urine Orange; Glucose Urine UA Negative (Negative); Ketones Urine Trace (Negative); Leukocyte Esterase Urine 3+ (Negative); Nitrite Urine Negative (Negative); Protein Urine 1+ (Negative); Specific Gravity Urine 1.006 (1.000-1.030); Urobilinogen Urine Negative (Negative); WBC Urine Automated >30 /hpf (0-5)
[2022-10-04] MEDS ORDERED: GENTAMICIN SULFATE IV STA (23:31)
[2022-10-04] MEDS ORDERED: DEXTROSE 5% IV STA (23:31)
--- NOTE | 2022-10-05 01:02 | History and Physical Report ---
HISTORY OF PRESENT ILLNESS: This is a 37-year-old status post twin delivery on 09/29/2022. This was a vaginal delivery. The pat ient did well and was discharged home in stable condition. This morning, the patient reported temper ature of 101.3 and presented to the Emergency Room. In the Emergency Room, she reported having passed clots. She reports of chills. She had no shortnes s of breath. Reports abdominal pain in the lower pelvic region. She denies cough, headaches, chest pain, nausea or vomiting. PAST MEDICAL HISTORY: No history of diabetes, hypertension, or asthma. PAST SURGICAL HISTORY: History of tonsillectomy and dental surgery. SOCIAL HISTORY: Denies tobacco, drug, or alcohol use. FAMILY HISTORY: Noncontributory. PHYSICAL EXAMINATION: GENERAL: In the ER, temperature is 37.6. HEART: S1 and S2, regular rhythm and rate. LUNGS: Clear to auscultation bilaterally. ABDOMEN: Nontender. Slight discomfort on palpation of fundus in the pelvis. PELVIC: Very little b leeding with discharge. EXTREMITIES: No cyanosis, clubbing or edema. Pelvic ultrasound shows possible retained products. ASSESSMENT AND PLAN: A 37-year-old status post twin vaginal delivery, possible retained products and endometritis. Plan i s to admit the patient, started her on antibiotics, and schedule the patient for dilation and evacuat ion of uterus under ultrasound guidance. Above was discussed with the patient and consent was signed . The patient will now be admitted and sent to [facility] floor. Job ID: [id number]
[2022-10-05] MEDS: CLINDAMYCIN/D5W 900 MG/50 ML PREMIX BAG IV SCH ×3 (04:14→20:43)
[2022-10-05] MEDS: ACETAMINOPHEN 325 MG TAB PO PRN (04:24)
--- NOTE | 2022-10-05 07:06 | Anesthesiology Consultation ---
Date of Service October 05, 2022 Assessment & Plan (1) Encounter for pre-operative examination: Chart Review Chart Review: Acceptable Risk for Surgery History Surgery Operation Date: 10/05/22 12:20 Proposed Procedures p Dilation and Evacuation - Brendon Ramsay MD Height/Weight Height: 5 ft 5 in Weight: 84.6 kg Allergies Allergy/AdvReac Type Severity Reaction Status Date / Time animal dander Allergy Intermediate sneeze, Verified 10/04/22 18:29 itchy eyes hazelnut Allergy Intermediate Hives Verified 10/04/22 18:29 ragweed pollen Allergy Intermediate sneeze, Verified 10/04/22 18:29 itchy eyes Medications Home Medications Medication Instructions Recorded Confirmed Last Taken cetirizine 10 mg tablet (Zyrtec) 10 mg PO DAILY 05/21/22 10/04/22 10/03/22 vit no.95-ferrous 1 tab PO DAILY 05/21/22 10/04/22 10/03/22 fumarate 28 mg-folic acid 800 mcg tablet () sertraline 100 mg tablet (Zoloft) 100 mg PO DAILY 09/29/22 10/04/22 10/03/22 ferrous sulfate 325 mg (65 mg 325 mg PO Q OTHER DAY 10/04/22 10/04/22 10/03/22 iron) tablet Active Medications Generic Name Dose Route Start Last Admin Trade Name Garoq PRN Reason Stop Dose Admin Acetaminophen 650 mg 10/04/22 22:58 10/05/22 04:24 Acetaminophen 325 Mg Tab PO 11/03/22 22:57 650 mg Q4H PRN Administration Pain or Fever Lactated Ringer's 1,000 mls @ 125 mls/hr 10/04/22 23:00 10/05/22 00:00 Lr IV 11/03/22 22:59 125 mls/hr .Q8H JOSE Administration Clindamycin Phosphate 900 mg in 50 mls @ 100 mls/hr 10/05/22 04:00 10/05/22 04:44 Cleocin/D5w IV 10/15/22 03:59 Infused Q8H JOSE Infusion Past Medical History Medical History Abdominal pain, right lower quadrant Anxiety and depression Past Surgical History Surgical History Hx of tonsillectomy [place] teeth extracted Social History Smoking Status: Never smoker Do You Dip or Chew Tobacco: No Hx Alcohol Use: Yes Alcohol type: wine alcohol intake frequency: holidays/special occasions only Hx Substance Use: No Physical Exam Vital Signs Last Vital Signs Temp 36.9 C 10/05/22 03:05 Pulse 81 10/05/22 03:05 Resp 18 10/05/22 03:05 BP 112/71 10/05/22 03:05 Pulse Ox 97 10/05/22 03:05 O2 Del Method Room Air 10/05/22 03:05 Testing Laboratory Results 10/04/22 18:34 10/04/22 18:34 PT 10.3 Seconds (9.0-12.0) 10/04/22 18:34 INR 1.0 (0.9-1.1) 10/04/22 18:34 APTT 27.9 Seconds (21.0-31.0) 10/04/22 18:34 Urine Color [place] 10/04/22 20:00 Urine Appearance Cloudy (Clear) A 10/04/22 20:00 Urine pH 7.0 (4.5-7.5) 10/04/22 20:00 Ur Specific [place] 1.006 (1.000-1.030) 10/04/22 20:00 Urine Protein 1+ (Negative) H 10/04/22 20:00 Urine Glucose (UA) Negative (Negative) 10/04/22 20:00 Urine Ketones Trace (Negative) H 10/04/22 20:00 Urine Nitrite Negative (Negative) 10/04/22 20:00 Ur Leukocyte Esterase 3+ (Negative) H 10/04/22 20:00 Urine WBC (Auto) >30 /hpf (0-5) H 10/04/22 20:00 Urine RBC (Auto) 10-30 /hpf (0-4) H 10/04/22 20:00 U Hyaline Cast (Auto) 1-5 /lpf (0-5) 10/04/22 20:00 U Epithel Cells (Auto) 10-20 /lpf (0-5) H 10/04/22 20:00 Urine Bacteria (Auto) Negative (Negative) 10/04/22 20:00
[2022-10-05] MEDS ORDERED: fentaNYL citrate PF 100 MCG/2 ML VIAL ONE ×2 (07:09→11:41)
[2022-10-05] MEDS ORDERED: MIDAZOLAM HCL 1 MG/ML 2ML VIAL ONE (07:09)
[2022-10-05] MEDS ORDERED: LIDOCAINE 2% MPF LOCAL 5 ML VIAL INFIL ONE (07:13)
[2022-10-05] MEDS ORDERED: PROPOFOL IV EMULSION 10 MG/ML 20 ML VIAL IV ONE (07:14)
--- NOTE | 2022-10-05 07:23 | History & Physical Bridge Note ---
Date of Service October 05, 2022 History & Physical Bridge Note I have examined the patient, reviewed the History & Physical and in the interval since the performance of the History & Physical I have noted the following changes of clinical significance: no changes noted
[2022-10-05] MEDS ORDERED: ONDANSETRON INJ 2 MG/ML 2 ML VIAL ONE (10:34)
[2022-10-05] MEDS ORDERED: miSOPROStoL 200 MCG TAB ONE (10:45)
[2022-10-05] MEDS ORDERED: PHENYLEPHRINE HCL 10 MG/ML VIAL ONE (11:08)
[2022-10-05] MEDS ORDERED: ePHEDrine sulfate 50 MG/ML AMP ONE (11:23)
--- NOTE | 2022-10-05 11:37 | Electrocardiogram Report ---
Test Reason : Blood Pressure : / mmHG Vent. Rate : 097 BPM Atrial Rate : 097 BPM P-R Int : 148 ms QRS Dur : 088 ms QT Int : 334 ms P-R-T Axes : 033 009 059 degrees QTc Int : 424 ms Normal sinus rhythm Nonspecific T wave abnormality Abnormal ECG No previous ECGs available Confirmed by Saul Flores ([id number]) on 10/05/2022 11:36:55 AM Referred By: REFERRED SELF Confirmed By:Saul Flores
[2022-10-05] MEDS ORDERED: KETOROLAC 30 MG/ML VIAL ONE (11:41)
[2022-10-05] MEDS ORDERED: ONDANSETRON INJ 2 MG/ML 2 ML VIAL IV PRN ×2 (12:07→12:11)
[2022-10-05] MEDS ORDERED: KETOROLAC 30 MG/ML VIAL IV PRN (12:11)
[2022-10-05] MEDS ORDERED: ATROPINE SULFATE 0.1 MG/ML 10ML SYR IV PRN (12:11)
[2022-10-05] MEDS ORDERED: fentaNYL citrate PF 100 MCG/2 ML VIAL IV PRN (12:11)
[2022-10-05] MEDS ORDERED: IBUPROFEN 600 MG TAB PO ONE (12:14)
[2022-10-05] MEDS ORDERED: LACTATED RINGER'S 1,000 ML IV SCH (12:15)
[2022-10-05] MEDS: IBUPROFEN 600 MG TAB PO PRN ×3 (12:16→21:41)
[2022-10-05] MEDS: LACTATED RINGER'S 1,000 ML IV SCH ×3 (12:40→21:41)
--- NOTE | 2022-10-05 12:56 | Operative Report (OR) ---
DATE OF SURGERY: 10/05/2022. INDICATION FOR SURGERY: This is a 37-year-old status post transvaginal delivery 6 days ago. The pat ient showed up in ER with fever and ultrasound showed possible retained products of conception. PREOPERATIVE DIAGNOSES: 1. Status post transvaginal delivery. 2. Possible retained products of conception. 3. Endomyometritis. POSTOPERATIVE DIAGNOSES: 1. Status post transvaginal delivery. 2. Possible retained products of conception. 3. Endomyometritis. PROCEDURE: 1. Exam under anesthesia. 2. Dilation and evacuation of uterus under ultrasound guidance. SURGEON: Brendon Ramsay MD. TATTOO TECHNICIAN: None. ANESTHESIA: General. DRAINS: None. ESTIMATED BLOOD LOSS: 50 mL. INTRAVENOUS FLUIDS: 1000 mL. URINE OUTPUT: 100 mL of clear urine at the beginning of the procedure. SPECIMEN: Products of conception. INTRAOPERATIVE COMPLICATIONS: None. PATIENT CONDITION: Stable. DISPOSITION: Postanesthesia Care Unit. ATTESTATION: I performed the entire procedure. FINDINGS: Normal female escutcheon. Cervix is dilated. On ultrasound guidance, there is very littl e products seen in the uterus. The uterus is heterogeneous in nature. DESCRIPTION OF PROCEDURE: The patient was taken to the operating room where she was prepped and drap ed in normal sterile fashion in dorsal lithotomy position. Timeout was called. Bladder was catheter ized. A single tooth tenaculum was used to grab the cervix. Uterus was gently sounded. The uterus was dilated in series. Under ultrasound guidance, a size 10 curved suction was introduced into the ut erine cavity. Curettage is performed with the suction. Suction was removed and a large Banjo curett e was carefully introduced into the uterine cavity. Curettage is performed in all 4 quadrants until a gritty texture was obtained. This was all done under ultrasound guidance. Suction was reintroduce d into the uterine cavity and at this point, no more tissue was seen coming through the suction. There was good hemostasis at the end of procedure. The patient was sent to recovery in stable condit ion after all instruments were removed from the vagina and the uterus and accounted for x2 including sponges, needles, and retractors. Job ID: [id number]
--- NOTE | 2022-10-05 13:10 | Anesthesiology Progress Note ---
Date of Service October 05, 2022 Anesthesia Post Procedure Vital Signs Vital Signs: Temp Pulse Pulse Pulse Resp BP BP 10/05/22 12:30 36.7 C 74 14 10/05/22 12:25 36.7 C 75 19 10/05/22 12:20 36.7 C 79 19 10/05/22 12:10 36.7 C 77 24 10/05/22 12:00 36.7 C 84 23 10/05/22 11:53 36.7 C 91 H 24 10/05/22 10:24 36.5 C 91 H 18 10/05/22 07:30 36.9 C 83 18 10/05/22 03:05 36.9 C 81 18 112/71 10/05/22 00:20 10/05/22 00:20 36.9 C 79 20 114/67 10/04/22 23:39 78 20 100/68 10/04/22 22:34 73 10/04/22 22:00 77 20 99/80 L 10/04/22 22:23 78 10/04/22 21:16 87 16 99/56 L 10/04/22 20:48 88 16 129/70 10/04/22 20:03 101 H 16 129/70 10/04/22 19:04 100 H 20 126/68 10/04/22 19:04 10/04/22 18:11 103 H 10/04/22 17:50 37.6 C H 119 H 20 109/64 BP Pulse Ox O2 Del Method O2 Flow Rate 10/05/22 12:30 102/61 99 Room Air 10/05/22 12:25 116/68 95 Room Air 10/05/22 12:20 117/68 96 Room Air 10/05/22 12:10 115/60 100 Nasal Cannula 3 10/05/22 12:00 114/56 L 100 Oxymask 5 10/05/22 11:53 113/57 L 100 Oxymask 8 10/05/22 10:24 120/80 98 Room Air 10/05/22 07:30 109/61 97 Room Air 10/05/22 03:05 97 Room Air 10/05/22 00:20 Room Air 10/05/22 00:20 98 Room Air 10/04/22 23:39 97 Room Air 10/04/22 22:34 10/04/22 22:00 97 Room Air 10/04/22 22:23 10/04/22 21:16 98 Room Air 10/04/22 20:48 98 Room Air 10/04/22 20:03 99 Room Air 10/04/22 19:04 99 Room Air 10/04/22 19:04 100 Room Air 10/04/22 18:11 10/04/22 17:50 97 Room Air Pain Intensity Lower Abdomen: Pain Intensity: 5 Transfer of Care Handoff Completed per policy Notes Mental Status: alert / awake / arousable Patient Amnestic to Procedure: Yes Nausea / Vomiting: adequately controlled Pain: adequately controlled Airway Patency, RR, SpO2: stable & adequate BP & HR: stable & adequate Hydration State: stable & adequate Anesthetic Complications: no major complications apparent
[2022-10-05] MEDS: METHYLERGONOVINE MALEATE 0.2 MG TAB PO SCH ×2 (13:52→21:05)
--- NOTE | 2022-10-05 15:12 | Pharmacy Report ---
Pharmacy PK ABX Note - Date of Service October 05, 2022 - Assessment and Plan Assessment * Ms Pryor is a 37 year old F receiving gentamicin/clindamycin for treatment of endomyometritis. * Pt is 6 days post- following vaginal delivery of twins on 09/29/22. * Pt developed a fever and was taken to the OR today for D&E of retained products of conception. Plan Gentamicin ~420mg (5mg/kg) IV q24h * dosing based on actual body weight in the setting * If patient remains hospitalized on gent therapy for >72hr, will obtain gent level. Clindamycin 900mg IV q8h Pharmacy will continue to follow and will adjust dose/frequency as necessary. Thank you.
[2022-10-05] MEDS: oxyCODONE/ACETAMINOPHEN 5mg/325mg TAB PO PRN ×2 (17:58→21:41)
[2022-10-06] MEDS: DEXTROSE 5% IV SCH (00:56)
[2022-10-06] MEDS: GENTAMICIN SULFATE IV SCH (00:56)
[2022-10-06] MEDS: IBUPROFEN 600 MG TAB PO PRN ×4 (03:00→22:48)
[2022-10-06] MEDS: CLINDAMYCIN/D5W 900 MG/50 ML PREMIX BAG IV SCH ×3 (04:05→19:49)
[2022-10-06 06:50] LABS: Basophils # (auto) 0.05 K/uL (0-0.2); Basophils % (auto) 0.3 %; Eosinophils % (auto) 2.5 %; Hematocrit (blood only) 27.1 % (37.0-47.0); Immature Granulocytes # (auto) 0.18 K/uL (0.01-0.20); Immature Granulocytes % (auto) 1.1 %; Lymphocytes # (auto) 2.85 K/uL (1.2-3.4); Lymphocytes % (auto) 17.6 %; Mean Corpuscular Hemoglobin 30.9 pg (25.0-34.0); Mean Corpuscular Hgb Conc 33.2 g/dL (32.0-36.0); Mean Corpuscular Volume 93.1 fL (80.0-100.0); Mean Platelet Volume 8.3 fL (9.4-12.4); Monocytes # (auto) 1.27 K/uL (0.11-0.59); Monocytes % (auto) 7.9 %; Neutrophils # (auto) 11.41 K/uL (1.40-6.50); Neutrophils % (auto) 70.6 %; Platelet Count 325 K/uL (130-400); RDW Coefficient of Variation 13.5 % (11.5-14.5); RDW Standard Deviation 46.3 fL (36.4-46.3); Red Blood Count 2.91 M/uL (4.20-5.40); White Blood Count 16.16 K/ul (4.8-10.8)
[2022-10-06 07:11] LABS: Creatinine Clr Calc Pharmacy 146.3 ml/min; Est GFR (African American) 137.1 ml/min; Est GFR (Non-African American) 118.3 ml/min
[2022-10-06] MEDS: METHYLERGONOVINE MALEATE 0.2 MG TAB PO SCH ×3 (09:03→22:07)
--- NOTE | 2022-10-06 10:19 | Obstetrical Progress Note ---
Date of Service October 06, 2022 Assessment & Plan (1) Endometritis: S/P D&E for retained products of conception Pt doing well No complaints last tempt was 19:00 hrs on 10/05/22- Afebrile since continue Gent and Clindamycin Subjective Review of Systems All systems reviewed & are unremarkable except as noted in HPI & below Physical Exam Constitutional WD/WN, vitals as above Eyes PERRL, conjunctivae normal, anicteric sclerae ENMT external ear and nose normal, oropharynx normal Neck trachea midline, no thyromegaly Respiratory normal respiratory effort, lungs clear to auscultation Cardiovascular RRR, no murmur, no edema Chest (Breasts) normal inspection/palpation of breasts Gastrointestinal (Abdomen) normal bowel sounds, soft, nontender, no hepatosplenomegaly Musculoskeletal no cyanosis or clubbing, extremities motor strength 5/5 Skin + incision (Incision clean,dry and intact) Neurologic patellar DTR's 2+ bilat, sensation intact Psychiatric A+Ox3, euthymic affect Genitourinary no vaginal lesions, no adnexal mass Lymphatic no cervical or axillary lymphadenopathy Results & Data ([facility]) Vital Signs (Past 12 Hours) Vital Signs Temp Pulse Resp BP Pulse Ox O2 Del Method 10/06/22 07:50 36.8 C 73 18 98/51 L 97 Room Air 10/06/22 02:56 36.8 C 78 20 100/56 L 98 Room Air 10/05/22 23:00 37.1 C 82 20 98/58 L 96 Room Air
[2022-10-06] MEDS ORDERED: AMPICILLIN 2,000 MG in SODIUM CHLOR 0.9% AD-VAN 100 ML IV SCH (11:45)
[2022-10-06] MEDS: ACETAMINOPHEN 325 MG TAB PO PRN ×3 (12:30→22:48)
[2022-10-06] MEDS: AMPICILLIN 2,000 MG in 0.9 % SODIUM CHLORIDE 100 ML IV SCH ×3 (13:26→23:30)
[2022-10-06] MEDS: SERTRALINE HCL 100 MG TABLET PO SCH (13:50)
--- NOTE | 2022-10-06 21:27 | Progress Note ---
Date of Service October 06, 2022 Assessment & Plan (1) Endometritis: Plan: Pt reports pain on deep breathing No SOB, or chills Stable vital Afeb since Amp was added to her meds Lung ; CTA bilat plan Chest x ray ordered Admission and Anticipated Discharge Date Admission Date: October 04, 2022 Results & Data ([facility]) Vital Signs (Past 12 Hours) Vital Signs Temp Pulse Resp BP Pulse Ox O2 Del Method 10/06/22 19:14 37.4 C 97 H 16 111/54 L 97 Room Air 10/06/22 17:45 37.3 C 10/06/22 16:00 36.9 C 89 16 102/55 L 97 Room Air 10/06/22 13:35 37.3 C 10/06/22 12:00 38.6 C H 10/06/22 11:28 37.4 C 96 H 18 102/63 100 Room Air 10/06/22 10:45 37.4 C
[2022-10-06] MEDS ORDERED: GENTAMICIN TROUGH ONE (23:30)
[2022-10-07] MEDS: GENTAMICIN SULFATE IV SCH
[2022-10-07] MEDS: DEXTROSE 5% IV SCH
[2022-10-07] MEDS: oxyCODONE/ACETAMINOPHEN 5mg/325mg TAB PO PRN (00:55)
[2022-10-07] MEDS: CLINDAMYCIN/D5W 900 MG/50 ML PREMIX BAG IV SCH ×2 (04:00→12:33)
[2022-10-07] MEDS: AMPICILLIN 2,000 MG in 0.9 % SODIUM CHLORIDE 100 ML IV SCH ×2 (05:45→12:33)
--- NOTE | 2022-10-07 07:23 | XRay Report ---
XR elbow RT 2V CLINICAL HISTORY: foreign body in upper arm right TECHNIQUE: 2 views of the right elbow were obtained. Comparison: None available at the time of this dictation. FINDINGS: There is no evidence of an acute fracture. Joint spaces are well-preserved. The alignment is anatomic . There is no prominence of the anterior or posterior fat pads to suggest an effusion. No soft tissue abnormality is seen. IMPRESSION: No acute abnormality and in particular no radiodensity to suggest retained catheter. ACT 112: Negative or not required by law. Electronically signed by: Daniel Merritt M.D. 10/07/2022 7:22 AM
--- NOTE | 2022-10-07 07:40 | XRay Report ---
XR chest 2V PA/lateral CLINICAL HISTORY: post op fever TECHNIQUE: 2 views of the chest were obtained. Comparison: Comparison is made to chest radiograph 10/04/2022 FINDINGS: No lines and tubes are seen. The cardiomediastinal silhouette is normal. The lungs are clear. No evid ence of pleural effusion or pneumothorax. IMPRESSION: No acute abnormalities and in particular no radiographic evidence of pneumonia. ACT 112: Negative or not required by law. Electronically signed by: Daniel Merritt M.D. 10/07/2022 7:38 AM
--- NOTE | 2022-10-07 07:53 | XRay Report ---
XR chest 1V portable CLINICAL HISTORY: 1cm IV catheter broke JULIA, arm xray neg TECHNIQUE: Single frontal radiograph of the chest was obtained. Comparison: Comparison is made to chest radiograph 10/06/2022 FINDINGS: No lines and tubes are seen. The cardiomediastinal silhouette is normal. The lungs are clear. No evid ence of pleural effusion or pneumothorax. IMPRESSION: No acute abnormality, in particular no radiodensity to suggest displaced catheter. ACT 112: Negative or not required by law. Electronically signed by: Daniel Merritt M.D. 10/07/2022 7:52 AM
--- NOTE | 2022-10-07 07:58 | Obstetrical Progress Note ---
Date of Service October 07, 2022 Assessment & Plan (1) Endometritis: s/p endometritis pt on triple antibx IV was infiltrated yesterday Attempt to replace IV lead to ?missing cath tip CT of arm done thru IR Seen by hospitalist AM CXR and US of arm pending to identify cath tip pt will be switched to Po antibx for now Subjective Review of Systems All systems reviewed & are unremarkable except as noted in HPI & below Physical Exam Constitutional WD/WN, vitals as above Eyes PERRL, conjunctivae normal, anicteric sclerae ENMT external ear and nose normal, oropharynx normal Neck trachea midline, no thyromegaly Respiratory normal respiratory effort, lungs clear to auscultation Cardiovascular RRR, no murmur, no edema Chest (Breasts) normal inspection/palpation of breasts Gastrointestinal (Abdomen) normal bowel sounds, soft, nontender, no hepatosplenomegaly Musculoskeletal no cyanosis or clubbing, extremities motor strength 5/5 Skin + incision (Incision clean,dry and intact) Neurologic patellar DTR's 2+ bilat, sensation intact Psychiatric A+Ox3, euthymic affect Genitourinary no vaginal lesions, no adnexal mass Lymphatic no cervical or axillary lymphadenopathy Results & Data ([facility]) Vital Signs (Past 12 Hours) Vital Signs Temp Pulse Resp BP Pulse Ox O2 Del Method 10/07/22 05:00 77 16 104/55 L 96 Room Air 10/07/22 04:00 37.4 C 18 10/07/22 06:00 36.8 C 10/06/22 23:30 37.5 C 89 20 109/68 99 Room Air 10/06/22 22:48 37.4 C
[2022-10-07 08:33] LABS: Basophils # (auto) 0.05 K/uL (0-0.2); Basophils % (auto) 0.4 %; Eosinophils # (auto) 0.15 K/uL (0-0.50); Eosinophils % (auto) 1.2 %; Hematocrit (blood only) 26.4 % (37.0-47.0); Hemoglobin 8.8 g/dl (12.0-16.0); Immature Granulocytes # (auto) 0.26 K/uL (0.01-0.20); Lymphocytes # (auto) 2.15 K/uL (1.2-3.4); Lymphocytes % (auto) 16.6 %; Mean Corpuscular Hemoglobin 31.1 pg (25.0-34.0); Mean Corpuscular Hgb Conc 33.3 g/dL (32.0-36.0); Mean Corpuscular Volume 93.3 fL (80.0-100.0); Mean Platelet Volume 8.3 fL (9.4-12.4); Monocytes # (auto) 0.88 K/uL (0.11-0.59); Monocytes % (auto) 6.8 %; Neutrophils # (auto) 9.49 K/uL (1.40-6.50); Platelet Count 346 K/uL (130-400); RDW Coefficient of Variation 13.7 % (11.5-14.5); RDW Standard Deviation 46.8 fL (36.4-46.3); Red Blood Count 2.83 M/uL (4.20-5.40); White Blood Count 12.98 K/ul (4.8-10.8)
--- NOTE | 2022-10-07 08:45 | Consultation Report ---
DATE OF CONSULT: 10/07/2022. CHIEF COMPLAINT: Peripheral IV line cut off in the upper arm. HISTORY OF PRESENT ILLNESS: This is a 37-year-old male status post twin delivery on 09/29/2022 it was vaginal delivery and she was admitted on 10/05/2022 for temperatures and pelvic ultrasound showed retained products. She was placed on antibiotics and D and E of the retained products. The patient tonight, she was a hard stick, IV team was trying to get ultrasound-guided IV line in the right upper arm when patient had lot of cramps and as per the iv team the catheter broke and _and was twisted and looks like about 1 cm catheter is missing. X-ray was done, does not show any foreign body on the right upper arm. The patient is sitting in chair, resting comfortably. Denies any pain. Denies any chest pain or shortness of breath, or headache, nausea, hemodynamically stable. ALLERGIES: ANIMAL DANDER,RAYMOND NUT RAGWEED PULL. PAST MEDICAL HISTORY: As mentioned above. PAST SURGICAL HISTORY: D and C, dental surgery, tonsillectomy. MEDICATIONS: Seems to be currently, she is on Tylenol p.r.n., ampicillin 2 g IV q. 6 hours, clindamycin 900 mg IV q. 8 hours, IV gentamicin, Motrin p.r.n., methylergonovine maleate 0.2 mg p.o. t.i.d., Zofran 4 mg IV q. 6 hours p.r.n., Percocet 5 mg 1 tablet p.o. q. 4 hours p.r.n., Zoloft 100 mg p.o. a.m. FAMILY HISTORY: Significant for mother has endometriosis, obstructive sleep apnea; father has heart disorder, atrial fibrillation. Maternal grandfather had colon cancer. SOCIAL HISTORY: , no smoking. Occasional alcohol, no drug use. REVIEW OF SYSTEMS: As per HPI. PHYSICAL EXAMINATION: GENERAL: The patient is alert, oriented, not in acute distress. VITAL SIGNS: Temperature 37.5, pulse 89, respiratory rate 20, blood pressure 109/68, oxygen 99% on room air. HEENT: Atraumatic. No facial droop. NECK: No obvious neck masses seen. CARDIOVASCULAR: S1 and S2 heard. Regular rate and rhythm. No murmur, no gallop. RESPIRATORY SYSTEM: Normal AP diameter. No accessory muscle use. No wheezing or crackles. ABDOMEN: Soft, nontender. CENTRAL NERVOUS SYSTEM: Alert and oriented. Speech is clear. No facial droop. Obeys simple commands. Moves extremities. EXTREMITIES: No obvious edema seen. Iv line site no obvious foreign body palpable LABORATORY DATA: Unavailable. ASSESSMENT AND PLAN: This 37-year-old female who recently had a vaginal delivery of the twins on 09/29/2019 presented with fevers and found to have retained products of conception, status post D and E and further management as per IV antibiotics and further management as per LUGGAGE LINER, found to have broken IV line in the right upper arm. X-ray of the arm is okay. Discussed with General Surgery. General Surgery thinks that generally the catheter will not broken in the blood vessel, but there was no obvious line sticking out on the arm. General Surgery says that they will come and evaluate the patient in the morning and ok to get ultrasound, which is ordered. CXR ordered which looks ok. Closely monitor. Job ID: [id number] [facility]
[2022-10-07] MEDS: SERTRALINE HCL 100 MG TABLET PO SCH (09:41)
[2022-10-07] MEDS: cephALEXin 500 MG CAP PO SCH ×2 (09:42→14:46)
[2022-10-07] MEDS: IBUPROFEN 600 MG TAB PO PRN (10:48)
--- NOTE | 2022-10-07 10:48 | Ultrasound Report ---
US extremity non-vascular ltd CLINICAL HISTORY: iv cath broke off in right upper arm. TECHNIQUE: Real-time grayscale sonographic images of the right upper arm were obtained. Comparison: Comparison is made to elbow radiograph 10/27/2022 FINDINGS/IMPRESSION: No definite foreign body is seen in the right upper arm in the area of the IV in sertion. The cephalic vein appears within normal limits with incidental note made of slow venous flow . ACT 112: Negative or not required by law. Electronically signed by: Daniel Merritt M.D. 10/07/2022 10:47 AM
--- NOTE | 2022-10-07 13:18 | Surgery Consultation ---
Date of Consultation October 07, 2022 Assessment & Plan (1) Complication of intravenous catheter site: There is no evidence of subcutaneous nor vascular foreign body on xray or ultrasound of the RUE. Nothing palpable on examination. No surgical intervention required at this time. Would consider reaching out to vascular surgery if there is any further imaging required or just close monitoring. Discussed with Dr. Reno. Our services signing off please call with questions/concerns. Dr. Esqueda has seen and examined pt, agrees with above. History of Present Illness Requesting Physician: Jonah Potter MD Attending Physician: Brendon Ramsay MD History of Present Illness This is a 37-year-old female status post twin delivery on 09/29/2022 via vaginal delivery who was readmitted on 10/05/2022 for fever and pelvic ultrasound showed retained products. She was placed on antibiotics and D and E of the retained products. She unfortunately had hard venous access and IV team was trying to place an IV via US guided and the catheter possibly broke off about 1 cm in length. Xray of the RUE did no show any foreign bodies. Ultrasound today did not show any intravascular or subcutaneous foreign bodies. She is not having severe pain in the RUE. No redness. States she had a tourniquit on for about 5 hours and that was removed this morning. Allergies Allergy/AdvReac Type Severity Reaction Status Date / Time animal dander Allergy Intermediate sneeze, Verified 10/05/22 10:22 itchy eyes hazelnut Allergy Intermediate Hives Verified 10/05/22 10:22 ragweed pollen Allergy Intermediate sneeze, Verified 10/05/22 10:22 itchy eyes Home Medications Medication Instructions Recorded Confirmed Type cetirizine 10 mg tablet (Zyrtec) 10 mg PO DAILY 05/21/22 10/04/22 History vit no.95-ferrous 1 tab PO DAILY 05/21/22 10/04/22 History fumarate 28 mg-folic acid 800 mcg tablet () sertraline 100 mg tablet (Zoloft) 100 mg PO DAILY 09/29/22 10/04/22 History ferrous sulfate 325 mg (65 mg 325 mg PO Q OTHER DAY 10/04/22 10/04/22 History iron) tablet Patient History Medical History Abdominal pain, right lower quadrant Anxiety and depression Surgical History Hx of tonsillectomy [place] teeth extracted Social History Smoking Status: Never smoker Second Hand Exposure: No; Do You Dip or Chew Tobacco: No; Hx Alcohol Use: Yes Alcohol type: wine Hx Substance Use: No Preferred Language: Occitan Communication Ability: Effective 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 Beliefs That Will Affect Care: None marital status: Current Living Situation: Family Current Living Situation Comment: [place]- , 5 Josué, 4 Hector (daughters) Other Information That Helps Us Care for You: No Feels Safe at Home: Yes Safety Concerns: Feels Safe At This Time Assistive Devices: None Physical Exam Constitutional: WD/WN, vitals as above cooperative, comfortable and + combative; no acute distress and not ill appearing Neck: normal visual inspection and trachea midline Respiratory: normal respiratory effort; no respiratory distress and no labored breathing Musculoskeletal: RUQ there is some mild edema at the antecubital fossa but no induration or fluctuance or erythema. Not tender to palpation. Unable to palpate any foreign body subcutaneously. Skin: no rashes, warm and dry no rashes and no erythema Psychiatric: A+Ox3, euthymic affect Results & Data ([facility]) Vital Signs (Past 12 Hours) Vital Signs Temp Pulse Resp BP Pulse Ox O2 Del Method 10/07/22 10:50 37.0 C 85 18 108/67 97 Room Air 10/07/22 08:09 36.8 C 60 18 103/59 L 10/07/22 05:00 77 16 104/55 L 96 Room Air 10/07/22 04:00 37.4 C 18 10/07/22 06:00 36.8 C Laboratory Results 10/07/22 10/06/22 Range/Units 08:09 23:24 WBC 12.98 H (4.8-10.8) K/ul RBC 2.83 L (4.20-5.40) M/uL Hgb 8.8 L (12.0-16.0) g/dl Hct 26.4 L (37.0-47.0) % MCV 93.3 (80.0-100.0) fL MCH 31.1 (25.0-34.0) pg MCHC 33.3 (32.0-36.0) g/dL RDW Std Deviation 46.8 H (36.4-46.3) fL RDW Coeff of Stanislav 13.7 (11.5-14.5) % Plt Count 346 (130-400) K/uL MPV 8.3 L (9.4-12.4) fL Immature Gran % (Auto) 2.0 % Neut % (Auto) 73.0 % Lymph % (Auto) 16.6 % [place] % (Auto) 6.8 % Eos % (Auto) 1.2 % Baso % (Auto) 0.4 % Neut # (Auto) 9.49 H (1.40-6.50) K/uL Lymph # (Auto) 2.15 (1.2-3.4) K/uL [place] # (Auto) 0.88 H (0.11-0.59) K/uL Eos # (Auto) 0.15 (0-0.50) K/uL Baso # (Auto) 0.05 (0-0.2) K/uL Immature Gran # (Auto) 0.26 H (0.01-0.20) K/uL Gentamicin Trough < 0.30 L (0.5-1.5) mcg/ml Diagnostic Findings S extremity non-vascular ltd CLINICAL HISTORY: iv cath broke off in right upper arm. TECHNIQUE: Real-time grayscale sonographic images of the right upper arm were obtained. Comparison: Comparison is made to elbow radiograph 10/27/2022 FINDINGS/IMPRESSION: No definite foreign body is seen in the right upper arm in the area of the IV insertion. The cephalic vein appears within normal limits with incidental note made of slow venous flow. XR elbow RT 2V CLINICAL HISTORY: foreign body in upper arm right TECHNIQUE: 2 views of the right elbow were obtained. Comparison: None available at the time of this dictation. FINDINGS: There is no evidence of an acute fracture. Joint spaces are well-preserved. The alignment is anatomic. There is no prominence of the anterior or posterior fat pads to suggest an effusion. No soft tissue abnormality is seen. IMPRESSION: No acute abnormality and in particular no radiodensity to suggest retained catheter.
--- NOTE | 2022-10-07 13:50 | Obstetrical Progress Note ---
Date of Service October 07, 2022 Assessment & Plan (1) Endometritis: (2) Retained products of conception: Plan discharge on PO antibiotics F/U in 2 days in clinic Subjective Ambulation: ambulating normally Voiding: no voiding problems Passing Gas:: Yes Diet Tolerance:: regular diet Lochia:: Small Feeding Type:: bottle feeding Current Pain Level(1-10): 0 Physical Exam Constitutional WD/WN, vitals as above Gastrointestinal (Abdomen) Inspection/Auscultation: abdomen normal to inspection abdomen soft and non-tender Musculoskeletal Extremities: extremities normal to inspection Genitourinary flesh like tissue passed spontaneously this afternoon with foul smell noted. Will submit to pathology as possible fragment of placenta Results & Data ([facility]) Vital Signs (Past 12 Hours) Vital Signs Temp Pulse Resp BP Pulse Ox O2 Del Method 10/07/22 10:50 37.0 C 85 18 108/67 97 Room Air 10/07/22 08:09 36.8 C 60 18 103/59 L 10/07/22 05:00 77 16 104/55 L 96 Room Air 10/07/22 04:00 37.4 C 18 10/07/22 06:00 36.8 C Laboratory Results 10/04/22 10/04/22 10/04/22 18:34 18:34 18:34 WBC 20.59 H RBC 3.43 L Hgb 10.8 L Hct 31.5 L MCV 91.8 MCH 31.5 MCHC 34.3 RDW Std Deviation 46.5 H RDW Coeff of Stanislav 13.9 Plt Count 409 H MPV 8.2 L Immature Gran % (Auto) 1.2 Neut % (Auto) 77.7 Lymph % (Auto) 13.3 Moffat % (Auto) 5.6 Eos % (Auto) 1.8 Baso % (Auto) 0.4 Neut # (Auto) 16.01 H Lymph # (Auto) 2.73 Moffat # (Auto) 1.15 H Eos # (Auto) 0.37 Baso # (Auto) 0.08 Immature Gran # (Auto) 0.25 H PT 10.3 INR 1.0 APTT 27.9 PTT Ratio 1.0 Sodium 134 L Potassium 3.5 Chloride 104 Carbon Dioxide 23 Anion Gap 7 BUN 5 L Creatinine 0.54 L Est Cr Clr Drug Dosing 143.3 Est GFR ( Amer) 138.7 Est GFR (Non-Af Amer) 119.7 BUN/Creatinine Ratio 9.3 L Glucose 79 Lactate Calcium 8.0 L Magnesium 1.8 Total Bilirubin 0.3 Direct Bilirubin 0.0 AST 9 L ALT 7 Alkaline Phosphatase 159 H Troponin I High Sens 5.6 Total Protein 6.6 Albumin 3.2 L Procalcitonin Urine Color Urine Appearance Urine pH Ur Specific [place] Urine Protein Urine Glucose (UA) Urine Ketones Urine Blood Urine Nitrite Urine Bilirubin Urine Urobilinogen Ur Leukocyte Esterase Urine WBC (Auto) Urine RBC (Auto) U Hyaline Cast (Auto) U Epithel Cells (Auto) Urine Bacteria (Auto) Gentamicin Trough SARS-CoV-2 (PCR) Influenza Type A (PCR) Influenza Type B (PCR) RSV (RT-PCR) 10/04/22 10/04/22 10/04/22 18:34 18:34 18:43 WBC RBC Hgb Hct MCV MCH MCHC RDW Std Deviation RDW Coeff of Stanislav Plt Count MPV Immature Gran % (Auto) Neut % (Auto) Lymph % (Auto) Moffat % (Auto) Eos % (Auto) Baso % (Auto) Neut # (Auto) Lymph # (Auto) Moffat # (Auto) Eos # (Auto) Baso # (Auto) Immature Gran # (Auto) PT INR APTT PTT Ratio Sodium Potassium Chloride Carbon Dioxide Anion Gap BUN Creatinine Est Cr Clr Drug Dosing Est GFR ( Amer) Est GFR (Non-Af Amer) BUN/Creatinine Ratio Glucose Lactate 0.7 Calcium Magnesium Total Bilirubin Direct Bilirubin AST ALT Alkaline Phosphatase Troponin I High Sens Total Protein Albumin Procalcitonin 0.05 Urine Color Urine Appearance Urine pH Ur Specific [place] Urine Protein Urine Glucose (UA) Urine Ketones Urine Blood Urine Nitrite Urine Bilirubin Urine Urobilinogen Ur Leukocyte Esterase Urine WBC (Auto) Urine RBC (Auto) U Hyaline Cast (Auto) U Epithel Cells (Auto) Urine Bacteria (Auto) Gentamicin Trough SARS-CoV-2 (PCR) NEGATIVE Influenza Type A (PCR) Negative Influenza Type B (PCR) Negative RSV (RT-PCR) Negative 10/04/22 10/06/22 10/06/22 20:00 05:55 05:55 WBC 16.16 H RBC 2.91 L Hgb 9.0 L Hct 27.1 L MCV 93.1 MCH 30.9 MCHC 33.2 RDW Std Deviation 46.3 RDW Coeff of Stanislav 13.5 Plt Count 325 MPV 8.3 L Immature Gran % (Auto) 1.1 Neut % (Auto) 70.6 Lymph % (Auto) 17.6 Moffat % (Auto) 7.9 Eos % (Auto) 2.5 Baso % (Auto) 0.3 Neut # (Auto) 11.41 H Lymph # (Auto) 2.85 Moffat # (Auto) 1.27 H Eos # (Auto) 0.40 Baso # (Auto) 0.05 Immature Gran # (Auto) 0.18 PT INR APTT PTT Ratio Sodium Potassium Chloride Carbon Dioxide Anion Gap BUN Creatinine 0.56 L Est Cr Clr Drug Dosing 146.3 Est GFR ( Amer) 137.1 Est GFR (Non-Af Amer) 118.3 BUN/Creatinine Ratio Glucose Lactate Calcium Magnesium Total Bilirubin Direct Bilirubin AST ALT Alkaline Phosphatase Troponin I High Sens Total Protein Albumin Procalcitonin Urine Color [place] Urine Appearance Cloudy A Urine pH 7.0 Ur Specific [place] 1.006 Urine Protein 1+ H Urine Glucose (UA) Negative Urine Ketones Trace H Urine Blood 3+ H Urine Nitrite Negative Urine Bilirubin Negative Urine Urobilinogen Negative Ur Leukocyte Esterase 3+ H Urine WBC (Auto) >30 H Urine RBC (Auto) 10-30 H U Hyaline Cast (Auto) 1-5 U Epithel Cells (Auto) 10-20 H Urine Bacteria (Auto) Negative Gentamicin Trough SARS-CoV-2 (PCR) Influenza Type A (PCR) Influenza Type B (PCR) RSV (RT-PCR) 10/06/22 10/07/22 23:24 08:09 WBC 12.98 H RBC 2.83 L Hgb 8.8 L Hct 26.4 L MCV 93.3 MCH 31.1 MCHC 33.3 RDW Std Deviation 46.8 H RDW Coeff of Stanislav 13.7 Plt Count 346 MPV 8.3 L Immature Gran % (Auto) 2.0 Neut % (Auto) 73.0 Lymph % (Auto) 16.6 Moffat % (Auto) 6.8 Eos % (Auto) 1.2 Baso % (Auto) 0.4 Neut # (Auto) 9.49 H Lymph # (Auto) 2.15 Moffat # (Auto) 0.88 H Eos # (Auto) 0.15 Baso # (Auto) 0.05 Immature Gran # (Auto) 0.26 H PT INR APTT PTT Ratio Sodium Potassium Chloride Carbon Dioxide Anion Gap BUN Creatinine Est Cr Clr Drug Dosing Est GFR ( Amer) Est GFR (Non-Af Amer) BUN/Creatinine Ratio Glucose Lactate Calcium Magnesium Total Bilirubin Direct Bilirubin AST ALT Alkaline Phosphatase Troponin I High Sens Total Protein Albumin Procalcitonin Urine Color Urine Appearance Urine pH Ur Specific [place] Urine Protein Urine Glucose (UA) Urine Ketones Urine Blood Urine Nitrite Urine Bilirubin Urine Urobilinogen Ur Leukocyte Esterase Urine WBC (Auto) Urine RBC (Auto) U Hyaline Cast (Auto) U Epithel Cells (Auto) Urine Bacteria (Auto) Gentamicin Trough < 0.30 L SARS-CoV-2 (PCR) Influenza Type A (PCR) Influenza Type B (PCR) RSV (RT-PCR) Diagnostic Findings All Values
--- NOTE | 2022-10-07 15:22 | Communication Note ---
Date of Service: October 07, 2022 Patient seen and examined at bedside as a follow-up of medical consult for IV catheter dislodged in right upper extremity. Nurses retrieved the IV catheter used last night on her and we compared with a fresh set of IV catheter. The used IV catheter was 6 cm lenght catheter and looked [definitely] smaller than the comparison IV catheter which was 8 cm and I think hence this was the concern that IV catheter tip might have broken and disloged in her right upper arm during manipulation. But looking at the tip of the used IV catheter which was 6 cm [marked 6 cm on the catheter itself] it still had its bevelled end which indicated that there is no broken catheter tip. Same was communicated to RN, patient and iv nurse. Initially i had discussion regarding this w/ surgery and vascular surgery team. Then vascular consult was cancelled. for detailed description/information on the patient refer to today's Hand P note.
--- NOTE | 2022-10-14 13:14 | Discharge Summary (DS) ---
DATE OF ADMISSION: 10/04/2022. DATE OF DISCHARGE: 10/07/2022. REASON FOR ADMISSION AND HOSPITAL COURSE: The patient was admitted on 10/04/2022 from the Emergency Room. She is status post a vaginal delivery of twins on 09/29/2022. Uncomplicated delivery. The pat bharath had a vaginal delivery and an uncomplicated course and was discharged home in stable condition o n 09/30/2022. The patient was readmitted on 10/04/2022 with an onset of vaginal bleeding and possibl e retained products of conception. She was taken to the OR on 10/05/2022 for D and C where minimal t issue was obtained. She was placed on IV antibiotics for presumed endometritis due to fever and eleva qamar white count. On 10/07/2022, she was afebrile for 24 hours. She was discharged home. Prior to kelly santos, she passed a large necrotic looking piece of tissue that was greater than 6 cm, presumably a part of a retained placenta. She was subsequently discharged home for followup in the office. She was given p.o. antibiotics and p.o. Methergine. Regular diet on discharge. CONDITION ON DISCHARGE: Stable and followup will be in 1 week in the office. Job ID: [id number]
== END 2022-10-07 15:15 | disposition home or self-care (01) | DRG 769 ==
LOC: ED 17:41 → 4E1 23:19